=== PATIENT | male | born 1945 | race Caucasian/White ===

== ENCOUNTER 2019-09-04 09:52 | Inpatient (IN) ==
[2019-08-29 13:33] LABS: Appearance,Urine CLEAR; Bilirubin,Urine NEG (NEG); Color,Urine STRAW; Culture Indicated,Urine NO; Glucose,Urine (UA) NEGATIVE (NEG); Ketones,Urine NEG (NEG); Leukocyte Esterase,Urine NEG /uL (NEG); Nitrate,Urine NEG (NEG); Protein,Urine NEG (NEG); Urine Blood NEG mg/dL (<0.03); Urobilinogen,Urine NEG (NEG)
[2019-08-29 14:22] LABS: Estimated Average Glucose(eAG) 134 mg/dL; Hemoglobin A1C 6.3 % HGB (4.0-6.0)
[2019-08-29 14:50] LABS: Basophils # (Auto) 0 K/mcL (0.0-0.3); Basophils % (Auto) 0.4 % (0.0-2.0); Eosinophils # (Auto) 0.3 K/mcL (0.0-0.7); Eosinophils % (Auto) 4.1 % (0.0-7.0); Granulocytes % (Auto) 58.2 % (38.0-78.0); Hematocrit 46.9 % (41.0-55.0); Hemoglobin 15.5 g/dL (13.5-16.5); Lymphocytes # (Auto) 1.9 K/mcL (1.5-4.8); Lymphocytes % (Auto) 27.8 % (15.5-49.0); Mean Cell Volume 97.9 fL (80.0-100.0); Mean Platelet Volume 7.4 fL (7.4-10.4); Monocytes # (Auto) 0.7 K/mcL (0.1-0.9); Monocytes % (Auto) 9.5 % (1.0-12.0); Platelet Count 181 K/mcL (140-440); RBC 4.79 M/mcL (4.50-5.90); Red Cell Distribution Width 14.2 % (11.5-14.5)
[2019-08-30 01:34] LABS: Blood Urea Nitrogen 18 mg/dl (8-23); Calcium 9.2 mg/dl (8.6-10.4); Carbon Dioxide 27 mmol/L (22-30); Chloride 94 mmol/L (96-108); Glomerular Filtration Rate 48; Glucose 90 mg/dL (70-105)
[~2019-09-04 09:52] MED LIST: PREGABALIN 75 MG CAPSULE PO SCH; ceFAZolin 2 GM in DEXTROSE 5% IN WATER 50 ML IV SCH; oxyCODONE 10 MG TAB.ER.12H PO SCH
[2019-09-04] MEDS: CELECOXIB 200 MG CAPSULE PO SCH ×2 (10:46→12:10)
[2019-09-04] MEDS ORDERED: PROPOFOL 200 MG/20 ML VIAL IV ONE (13:04)
[2019-09-04] MEDS ORDERED: KETAMINE 100 MG/ML ML IV ONE (13:04)
[2019-09-04] MEDS ORDERED: DEXAMETHASONE 10 MG/ML VIAL IV ONE (13:04)
[2019-09-04] MEDS ORDERED: LIDOCAINE HCL/PF 100 MG/5 ML SYRINGE IV ONE (13:04)
[2019-09-04] MEDS ORDERED: PHENYLEPHRINE 10 MG/ML VIAL IV ONE (13:04)
[2019-09-04] MEDS ORDERED: ONDANSETRON 4 MG/2 ML VIAL IV ONE (13:04)
[2019-09-04] MEDS ORDERED: GLYCOPYRROLATE 0.2 MG/ML VIAL IV ONE (13:04)
[2019-09-04] MEDS ORDERED: SUCCINYLCHOLINE 20 MG/ML ML IV ONE (13:04)
[2019-09-04] MEDS ORDERED: fentaNYL 250 MCG/5 ML VIAL IV ONE (13:04)
[2019-09-04] MEDS ORDERED: KETOROLAC 30 MG/ML VIAL IV ONE (13:04)
[2019-09-04] MEDS ORDERED: TRANEXAMIC ACID 1,000 MG/10 ML VIAL IV ONE (13:04)
[2019-09-04] MEDS ORDERED: LABETALOL 5 MG/ML ML IV PRN (13:39)
[2019-09-04] MEDS ORDERED: METHOCARBAMOL 1,000 MG/10 ML VIAL IV PRN (13:39)
[2019-09-04] MEDS ORDERED: IPRATROPIUM/ALBUTEROL 3 ML AMPUL.NEB NEB PRN (13:39)
[2019-09-04] MEDS ORDERED: fentaNYL 100 MCG/2 ML VIAL IV PRN (13:39)
[2019-09-04] MEDS ORDERED: FLUMAZENIL 0.1 MG/ML ML IV PRN (13:39)
[2019-09-04] MEDS ORDERED: BENZOCAINE/MENTHOL 1 LOZENGE PO PRN ×2 (13:39→14:55)
[2019-09-04] MEDS ORDERED: ACETAMINOPHEN 1,000 MG/100 ML BOTTLE IV ONE (13:39)
[2019-09-04] MEDS ORDERED: ONDANSETRON 4 MG/2 ML VIAL IV PRN ×2 (13:39→14:55)
[2019-09-04] MEDS ORDERED: LACTATED RINGERS 250 ML IV PRN (13:39)
[2019-09-04] MEDS ORDERED: HYDROmorphone 2 MG/ML VIAL IV PRN (13:39)
[2019-09-04] MEDS ORDERED: NALOXONE HCL 0.4 MG/ML VIAL IV PRN (13:39)
[2019-09-04] MEDS ORDERED: LACTATED RINGERS 1,000 ML IV SCH (13:45)
[2019-09-04] MEDS ORDERED: BUPIVACAINE W/EPI 0.5% 50 ML VIAL IJ ONE (14:51)
[2019-09-04] MEDS ORDERED: MAGNESIUM HYDROXIDE 30 ML ORAL.SUSP PO PRN (14:55)
[2019-09-04] MEDS ORDERED: FLEETS ADULT ENEMA PR PRN (14:55)
[2019-09-04] MEDS ORDERED: BISACODYL 10 MG SUPP.RECT PR PRN (14:55)
[2019-09-04] MEDS ORDERED: KETOROLAC 15 MG/ML VIAL IV PRN (14:55)
[2019-09-04] MEDS ORDERED: TRANEXAMIC ACID 1,000 MG/10 ML VIAL IV SCH (14:55)
[2019-09-04] MEDS ORDERED: POLYETHYLENE GLYCOL 3350 17 GM PACKET PO PRN (14:55)
--- NOTE | 2019-09-04 14:55 | Brief Operative Note ---
Date of procedure: 09/04/19 Pre-op diagnosis: Left shoulder severe OA Post-op diagnosis: same Procedure: 1)Left total shoulder arthroplasty 2)Left biceps tenodesis Grafts/Implants: Yes (Tornier simpliciti 2 nucleus, 46x17 head, XL 40 glenoid) Anesthesia: GETA Findings: severe arthritis, intact RTC Complications: none Surgeon: Aashish Carson Hospice Director: Brannon Benitez Estimated blood loss (cc): 200 Specimens Removed/Pathology: none sent Condition: stable Disposition: PACU
[2019-09-04] MEDS ORDERED: FLUTICASONE PROPIONATE SPRAY.NAS NS PRN (14:58)
--- NOTE | 2019-09-04 16:14 | Discharge Summary ---
Providers - Providers Patient information: Note initiated : 09/04/19 at 4:11 pm Service Date, if different from initiated Date: [] Patient: Chino Apodaca 74 y/o M admitted on 09/04/19 for Left Total Shoulder Arthroplasty vs. Reverse Total. Chief Complaint: [] Discharge date: 09/05/19 Hospitalization Hospital Course: Pt was admitted for a L TSA. Pt admitted on the day of admission. Pt spent one night on the floor for IV pain meds, IV abx, and PT. Pt discharged on post-op day 1. f/u in 2 weeks. Discharge diagnosis: L shoulder OA Exam - Exam Clean and dry: Yes Weight bearing status: none Ortho Discharge - TSA - Patient Instructions Diet: Regular Diet Activity: non weight bearing Total Shoulder Protocol: Leave immobilizer in place except for bathing and ROM. Abduction pillow. Continue to wear sling until seen by physician. Codman Pendulum : These exercises use momentum produced by your body to move your shoulder joint. Bend your knees and shift your weight to your front leg, then back, allowing your arm to swing in the same directions. Using the same technique, alternately shift your weight between your right and left legs, allowing your arm to swing from side to side. These exercises are also performed in counterclockwise and clockwise circular motions. Typically these exercises are performed several times per day, for a set number repetitions or minutes, such as 20 times in a row or 5 minutes at a time. Dressing Care: May shower in 2 days - Follow Up Plan Follow Up Appointments: Brannon Benitez PA-C [Physician Chartered Financial Analyst] - 09/17/19 2:20 pm Disposition: Home, Self-Care Prognosis: Good Rehab Potential: Good Overall status at discharge: patient is progressing back to baseline - Orders For Discharge Prescriptions: oxyCODONE/APAP [Percocet 5-325 mg] 1 - 2 tab PO Q4HP PRN #75 tab PRN Reason: Per Pain Protocol Prescription Printed Pending Studies Resuscitation Status Full Code Diet Regular Diet Start TueSep 04 [id number]
--- NOTE | 2019-09-04 16:19 | XRay Report ---
CLINICAL INFORMATION: Postsurgical follow-up TECHNIQUE: AP internal and external rotation, axillary views COMPARISON: None. FINDINGS: Status post left humeral head arthroplasty. Alignment is anatomic. There are skin stephani present. There is soft tissue post surgical gas IMPRESSION: Status post left shoulder arthroplasty Interpreted and Authenticated by: Trenton Romero 09/04/19
[2019-09-04] MEDS: 0.9 % SODIUM CHLORIDE 1,000 ML IV SCH (16:56)
[2019-09-04] MEDS ORDERED: ceFAZolin 1 GM VIAL ONE (19:46)
[2019-09-04] MEDS: ceFAZolin 1 GM VIAL IV SCH (19:52)
[2019-09-04] MEDS: DOCUSATE SODIUM 100 MG CAPSULE PO SCH (19:53)
[2019-09-04] MEDS: 0.9 % SODIUM CHLORIDE 10 ML SYRINGE IV SCH ×2 (19:54→22:45)
[2019-09-04] MEDS ORDERED: SENNOSIDES 1 TABLET PO SCH (21:00)
[2019-09-05] MEDS: 0.9 % SODIUM CHLORIDE 1,000 ML IV SCH (02:02)
[2019-09-05] MEDS: oxyCODONE/APAP 5/325MG TABLET PO PRN ×2 (03:01→08:57)
[2019-09-05] MEDS: ceFAZolin 1 GM VIAL IV SCH (05:10)
[2019-09-05] MEDS: 0.9 % SODIUM CHLORIDE 10 ML SYRINGE IV SCH (05:11)
--- NOTE | 2019-09-05 08:05 | Operative Note ---
DATE OF OPERATION: 09/04/2019 PREOPERATIVE DIAGNOSIS: Left shoulder severe osteoarthritis, possible rotator cuff tear. POSTOPERATIVE DIAGNOSIS: Left shoulder severe osteoarthritis, without rotator cuff tear but with biceps tendinopathy. PROCEDURE PERFORMED: 1. Left total shoulder arthroplasty placing a Tornier size 2 nucleus with a 46 x 17 humeral head and an extra-large 40 CortiLoc glenoid. 2. Biceps tenodesis. SURGEON: Aashish Carson MD BURN NURSE: Girma Benitez PA-C. This provider's expertise and technical skill were required throughout the case. The PA assisted with preoperative coordination, intraoperative retraction, wound closure, dressing and splint application, as well as postoperative documentation and care coordination. ANESTHESIA: General. DRAINS: None. SPECIMENS: Humeral head which was discarded. BLOOD LOSS: 200 mL POSTOPERATIVE CONDITION: Stable. INDICATIONS FOR SURGERY: This is a 74-year-old male who has had longstanding progressive worsening left shoulder pain. Radiographs showed severe osteoarthritis. FINDINGS AT SURGERY: He had severe osteoarthritis with intact rotator cuff. The biceps was tendinopathic. Post implantation showed satisfactory component position, stability and lesser tuberosity reduction. PROCEDURE IN DETAIL: The patient had been seen preoperatively. Informed consent had been obtained after discussion of risks and benefits of surgery. Risks including, but not limited to, bleeding; infection, possibly requiring implant removal, prolonged IV antibiotics; injury to nerves, blood vessels, and other surrounding structures; anesthetic risks; incomplete or no resolution of symptoms, dislocation and possibility of needing further surgery such as if the rotator cuff did tear. He understood these and wished to proceed. The operative site was marked and general anesthesia induced. He was carefully positioned in beach chair position and pressure points carefully padded.____ ___ ___ ___ Ioban was used to cover all skin surfaces. Standard deltopectoral incision ___ ____ ___. Careful blunt dissection was taken down onto the cephalic vein. IrriSept was irrigated. We carefully dissected medial to the vein, keeping this lateral with the deltoid. Blunt finger dissection was then used to develop the subdeltoid space and a Wolf deltoid retractor placed. The lateral edge of conjoint tendon was identified and retractor placed underneath the biceps. Her severe shoulder was inspected and the rotator cuff showed no cuff tears. We identified the biceps tendon and released this with a scalpel. We amputated it off the superior glenoid. A lesser tuberosity osteotomy was performed with an osteotome to detach the subscapularis and then a traction stitch was placed around this. We then dislocated the humeral head out anteriorly. We released capsule around the inferior neck and then a curved osteotome was used to remove the large osteophytes. We then attempted to expose the glenoid, keeping the head. Labrum was excised circumferentially and then capsule was released carefully with Bovie around the inferior glenoid carefully keeping on bone and using a gentle retraction of the soft tissues distally. When it was apparent we were not going to have adequate glenoid exposure, we then re-exposed the proximal humerus. A cut guide was placed along the anatomic line and then oscillating saw was used to make the osteotomy. We then sized this to a 2 nucleus and then placed a guide pin. We milled down until we saw milling wetzel on the bone and then drilled the central peg and then did the punch for the three pins. We then placed a cut protector over top and re-exposed the glenoid. At this point, we had adequate ____. We used the sizing guide to determine the extra-large 40 curvature so a 10 degree anteverted pin guide was placed onto the extra large 50 and then the guide pin was passed. We then started reaming. Due to the retroversion of the glenoid we did ream more anteriorly. We continued reaming until we contacted bone posteriorly. We then drilled the central peg and then removed the guide pin; three peripheral pegs were drilled. We trialled a 40 extra large and it fit well, so we went ahead and opened a 40 extra large glenoid. We irrigated the joint with the IrriSept. Cement was DBX bone putty in the flutes of the central peg. We then pulse lavaged with saline and then injected the three peripheral peg holes with cement and pressurized. I then impacted the glenoid into place and then held it still until cement had fully hardened. The well to a 46/17. This was placed on the nucleus. We checked our stability and there was about 50% posterior subluxation, so we went ahead and re-exposed. We removed the nucleus trial and then opened the definitive 2 nucleus and 46/17 head. The proximal humerus was irrigated with IrriSept, after a minute we then pulse lavaged with saline. The nucleus was then impacted with the single thin superiorly. Once this was fully seated, we then placed the head on top of this and impacted. The shoulder was reduced. We did another IrriSept irrigation and after a minute another pulse lavage and then two drill holes were placed in the bicipital groove, #2 FiberWire [id number] was placed through the holes around the lesser tuberosity fragment and back through the second hole and around again creating a [id number] stitch over top. This was tied, reducing the fragment anatomically. I then placed another FiberWire [id number] in the . I then used the traction stitch with a free needle and passed this through bone out laterally first passing both sutures through the biceps tendon for tenodesis and then these were tied over the lateral bone and cut. The proximal stump was amputated. We then closed the deltopectoral interval with a running #1 Vicryl. Final IrriSept irrigation was done, after a minute final pulse lavage, and then a 2-0 Monocryl was used for subcutaneous and stephani for skin. Local anesthetic was injected and Xeroform and sterile dressing were applied. The arm was placed in an abductor immobilizer. The patient was awakened, extubated, and transferred to recovery in stable condition. SOPHY:joel Job ID: [id number] Doc ID: [id number] Aashish Carson MD
[2019-09-05] MEDS: DOCUSATE SODIUM 100 MG CAPSULE PO SCH (08:58)
[2019-09-05] MEDS ORDERED: CIDER VINEGAR 300 MG PO SCH (09:00)
[2019-09-05] MEDS ORDERED: ASPIRIN 81 MG TAB.CHEW PO SCH (09:00)
[2019-09-05] MEDS ORDERED: MULTIVIT,THER IRON,CA,FA & MIN 1 TABLET PO SCH (09:00)
[2019-09-05] MEDS ORDERED: ALLOPURINOL 300 MG TABLET PO SCH (09:00)
[2019-09-05] MEDS ORDERED: HYDROCHLOROTHIAZIDE 25 MG TABLET PO SCH (09:00)
== END 2019-09-05 09:23 | disposition home or self-care (01) | DRG 483 ==
LOC: MEDSUR 09:52
PROVIDERS: ADMIT Orthopaedic Surgery; ATTEND Orthopaedic Surgery